=== PATIENT | female | born 1980 | race Caucasian/White ===

== ENCOUNTER 2017-05-11 03:23 | Emergency (ER) | payer OTHER ==
[2017-05-11 04:24] VITALS: BP 156/98
== END 2017-05-11 04:24 | disposition home or self-care (01) ==
LOC: ED 03:23
DX: K13.0 Diseases of lips (principal); F41.9 Anxiety disorder, unspecified; Z87.891 Personal history of nicotine dependence
CPT/HCPCS: J0696

== ENCOUNTER 2019-09-10 20:14 | Emergency (ER) | payer OTHER ==
[~2019-09-10] VITALS: Ht 200.7 cm; Wt 75.7 kg
[2019-09-10 20:26] VITALS: Ht 200.7 cm; Wt 75.7 kg
[2019-09-10 21:38] VITALS: BP 141/97
== END 2019-09-10 21:38 | disposition home or self-care (01) ==
LOC: ED 20:14
DX: S80.02XA Contusion of left knee, initial encounter (principal); F41.9 Anxiety disorder, unspecified; Z88.0 Allergy status to penicillin; Z98.890 Other specified postprocedural states; W01.0XXA Fall on same level from slipping, tripping and stumbling without subsequent striking against object, initial encounter; Y93.89 Activity, other specified; Y92.89 Other specified places as the place of occurrence of the external cause; Y99.8 Other external cause status
CPT/HCPCS: J1885

== ENCOUNTER 2019-10-19 14:51 | Emergency (ER) | payer OTHER | END 2019-10-19 15:59 | disposition left against medical advice (07) | LOC: ED 14:51 | DX: Z53.21 Procedure and treatment not carried out due to patient leaving prior to being seen by health care provider (principal) ==